=== PATIENT | male | born 1990 | race Caucasian/White ===

== ENCOUNTER 2017-02-10 15:44 | Emergency (ER) | payer SELFPAY ==
[~2017-02-10 15:44] MED LIST: ADVIL,NUPRIN,M200 MG PO; ATIVAN0.5 MG PO; CIPRO500 MG PO; FLAGYL500 MG PO; INVanz 1 gm/NaCl 0.9 IV; MIRTAZAPINE15 MG PO; MOTRIN800 MG PO; NAPROSYN500 MG PO; OXYCODONE-APAP1 EACH PO; PERCOCET 10/1 TABLET PO; PERCOCET 5/31 TABLET PO; PROMETHAZINE HC25 M1 PO; Percocet 5/325,Endoc PO; ZOFRAN4 MG PO
[2017-02-10 16:06] LABS: BASOPHIL COUNT 0.1 K/uL (0-0.1); EOSINOPHIL (%) 1.2 % (0-5); EOSINOPHIL COUNT 0.2 K/uL (0-0.3); HEMATOCRIT 45.3 % (38.0-50.0); IMMATURE GRANULOCYTE (%) 0.4 % (0.0-0.7); IMMATURE GRANULOCYTE COUNT 0.1 K/uL; INSTRUMENT ABS NEUTROPHIL CT 12.7 K/uL; LYMPHOCYTE COUNT 2.1 K/uL (1.0-2.8); MCHC 33.8 G/DL (30.0-36.0); MCV 85.8 FL (86-99); MEAN PLAT.VOLUME 10.8 uM^3 (9.0-12.4); MONOCYTE (%) 6.9 % (3-12); MONOCYTE COUNT 1.1 K/uL (0-0.8); NEUTROPHIL (%) 77.8 % (45-76); NEUTROPHIL COUNT 12.7 K/uL (1.8-6.4); PLATELET COUNT 260 K/uL (156-360); RBC DIS.WIDTH-CV 13.2 % (11.8-14.6); RBC DIS.WIDTH-SD 41.6 % (39-53); RED BLOOD COUNT 5.28 M/uL (4.00-5.50); WHITE BLOOD COUNT 16.3 K/uL (4.1-10.2)
[2017-02-10 16:17] LABS: AMYLASE 68 IU/L (1-118); CHLORIDE 106 mEq/L (99-109); POTASSIUM 4.1 mEq/L (3.7-5.4); SODIUM 139 mEq/L (136-147)
[2017-02-10 16:18] LABS: GLUCOSE 96 mg/dL (70-99)
[2017-02-10 16:20] LABS: ADD MIUA? YES; BILIRUBIN NEGATIVE; BLOOD NEGATIVE; COLOR YELLOW ((YELLOW)); GLUCOSE (STRIP) NEGATIVE; KETONES NEGATIVE; LEUKOCYTES NEGATIVE; NITRITE NEGATIVE; PROTEIN (STRIP) 30; SPECIFIC GRAVITY 1.021 (1.000-1.030); UROBILINOGEN 0.2 MG/DL (0.2-1.0)
[2017-02-10 16:21] LABS: ANION GAP 11 MEQ/L (2-14); SERUM ETHYL ALCOHOL < 10 mg/dL
[2017-02-10 16:22] LABS: GFR ESTIMATE (CALCULATED) > 59 mL/min/
[2017-02-10 16:23] LABS: UREA NITROGEN (BUN) 12 mg/dL (9-23)
[2017-02-10 16:25] LABS: LIPASE 48 U/L (1.0-51.0)
[2017-02-10 16:35] LABS: AMPHETAMINE NEGATIVE (500 ng/mL); BARBITURATES NEGATIVE (200 ng/mL); BENZODIAZEPINES NEGATIVE (150 ng/mL); COCAINE NEGATIVE (150 ng/mL); INTERNAL CONTROLS VALID? YES; METHADONE NEGATIVE (200 ng/mL); METHAMPHETAMINE NEGATIVE (500 ng/mL); OPIATES (MORPHINE) NEGATIVE (100 ng/mL); OXYCODONE NEGATIVE (100 ng/mL); PHENCYCLIDINE NEGATIVE (25 ng/mL); PROPOXYPHENE NEGATIVE (300 ng/mL); THC CANNABINOIDS PRESUMPTIVE POSITIVE (50 ng/mL); TRICYCLIC ANTIDEPRESSANTS NEGATIVE (300 ng/mL)
[2017-02-10 16:45] LABS: ADD MEDTOX COMMENT Y
[2017-02-10 16:49] LABS: BACTERIA RARE /HPF; EPITHELIAL CELLS RARE /HPF; MUCUS NONE SEEN /LPF; RED BLOOD CELLS 0-5 /HPF (0-5); UCUL ADDED? NO; WHITE BLOOD CELLS 0-5 /HPF (0-5)
== END 2017-02-10 18:26 | disposition home or self-care (01) ==
LOC: TRA 15:44
PROVIDERS: Emergency Medicine
DX: S93.409A Sprain of unspecified ligament of unspecified ankle, initial encounter (principal); M79.652 Pain in left thigh; M79.672 Pain in left foot; M79.671 Pain in right foot; W11.XXXA Fall on and from ladder, initial encounter
CPT/HCPCS: 73552; 73600; 73610; 73650; 80048; 81003; 82150; 83690; 84999; 85025; 86900; 86901; 99281; 99285; G0480

== ENCOUNTER 2017-12-26 20:31 | Emergency (ER) | payer OTHER ==
[~2017-12-26] VITALS: Ht 180.3 cm; Wt 79.5 kg
[2017-12-26] MEDS ORDERED: MOTRIN800 MG PO (21:08)
[2017-12-26] MEDS ORDERED: ULTRAM50 MG PO (21:08)
[2017-12-26 21:37] VITALS: BP 142/90
== END 2017-12-26 21:40 | disposition home or self-care (01) ==
LOC: EME 20:31
DX: M25.561 Pain in right knee (principal); Z88.0 Allergy status to penicillin
CPT/HCPCS: 73564; 99281; 99284